=== PATIENT | female | born 1960 | race Caucasian/White ===

== ENCOUNTER → 2023-10-21 14:15 | Outpatient (CLI) | payer MEDICARE, OTHER, SELFPAY | PROVIDERS: Family Provider Nurse Practitioner Family; PCP Nurse Practitioner Family; Referring Provider Internal Medicine Critical Care Medicine; Visit Provider Internal Medicine Critical Care Medicine | DX: R06.09 Other forms of dyspnea (principal); Z87.891 Personal history of nicotine dependence; J98.8 Other specified respiratory disorders | CPT/HCPCS: 94060; 94726; 94729 ==

== ENCOUNTER 2024-03-02 14:15 | Outpatient (RCR) | payer MEDICARE, OTHER, SELFPAY | END 2024-03-02 16:15 | LOC: PUL 14:15 | PROVIDERS: Family Provider Nurse Practitioner Family; PCP Nurse Practitioner Family; Referring Provider Internal Medicine Critical Care Medicine; Visit Provider Internal Medicine Critical Care Medicine | DX: J44.9 Chronic obstructive pulmonary disease, unspecified (principal) | CPT/HCPCS: 94626 ==

== ENCOUNTER 2024-10-19 14:15 | Outpatient (RCR) | payer MEDICARE, OTHER, SELFPAY | END 2024-10-19 16:15 | LOC: PUL 14:15 | PROVIDERS: Family Provider Nurse Practitioner Family; PCP Nurse Practitioner Family; Referring Provider Internal Medicine Critical Care Medicine; Visit Provider Internal Medicine Critical Care Medicine | DX: J44.9 Chronic obstructive pulmonary disease, unspecified (principal) | CPT/HCPCS: 94626 ==

== ENCOUNTER → 2024-12-18 15:34 | Outpatient (CLI) | payer MEDICARE, OTHER, SELFPAY ==
--- NOTE | 2024-12-18 15:35 | DI.RAD.S_ITS ---
PROCEDURE: FL BARIUM SWALLOW INDICATIONS: GASTROESOPHAGEAL REFLUX/DYSPHAGIA COMPARISON: None. FINDINGS: Function: There is normal esophageal peristalsis. No elicited gastroesophageal reflux. There is normal transit of a calibrated barium tablet through the esophagus into the stomach. Morphology: Air-contrast images demonstrate normal mucosal morphology. Single contrast views show no esophageal strictures, extrinsic mass effects, or diverticula. Limited images of the stomach demonstrate normal appearance. IMPRESSION: Unremarkable barium swallow study. Dictated by: Yadiel Hsu M.D. on 12/18/2024 at 16:51 Approved by: Yadiel Hsu M.D. on 12/18/2024 at 16:52
== END ==
PROVIDERS: Family Provider Nurse Practitioner Family; PCP Nurse Practitioner Family; Referring Provider Internal Medicine Gastroenterology; Visit Provider Internal Medicine Gastroenterology
DX: K21.9 Gastro-esophageal reflux disease without esophagitis (principal); R13.10 Dysphagia, unspecified; J96.11 Chronic respiratory failure with hypoxia; J43.2 Centrilobular emphysema; J01.90 Acute sinusitis, unspecified; R06.89 Other abnormalities of breathing
CPT/HCPCS: 74220; 99215

== ENCOUNTER → 2025-03-14 13:53 | Outpatient (CLI) | payer MEDICARE, OTHER, SELFPAY ==
--- NOTE | 2025-03-14 13:56 | DI.RAD.S_ITS ---
PROCEDURE: XR CHEST 2V INDICATIONS: Shortness of breath TECHNIQUE: 2 views of the chest were acquired. COMPARISON: None. FINDINGS: Surgical changes and devices: None. Lungs and pleura: Lungs are clear. Left basilar atelectasis. No pleural effusions or pneumothorax. Mediastinum: Mediastinal contours are normal. Heart size is normal. Bones and chest wall: No suspicious bony abnormalities. Soft tissues appear unremarkable. IMPRESSION: No acute cardiopulmonary abnormality is seen. Dictated by: Antolin Potts M.D. on 03/14/2025 at 23:41 Approved by: Antolin Potts M.D. on 03/14/2025 at 23:42
== END ==
PROVIDERS: Family Provider Nurse Practitioner Family; PCP Physician Assistant; Referring Provider Internal Medicine Critical Care Medicine; Visit Provider Internal Medicine Critical Care Medicine
DX: J96.11 Chronic respiratory failure with hypoxia (principal); J96.12 Chronic respiratory failure with hypercapnia; J44.1 Chronic obstructive pulmonary disease with (acute) exacerbation; R06.02 Shortness of breath
CPT/HCPCS: 71046; 99215

== ENCOUNTER 2025-04-16 18:23 | Emergency (ER) | payer MEDICARE, OTHER, SELFPAY ==
[2025-04-16 18:31] VITALS: BP 138/65; PULSE 90; RESP 18; TEMP 36.1; O2SAT 95; BMI 38.2
--- NOTE | 2025-04-16 18:31 | DI.RAD.S_ITS ---
PROCEDURE: XR CHEST 1V INDICATIONS: Chest Pain TECHNIQUE: One view of the chest was acquired. COMPARISON: [facility], CR, XR CHEST 2V, 03/14/2025, 13:55. FINDINGS: Surgical changes and devices: None. Lungs and pleura: Lungs are clear. No pleural effusions or pneumothorax. Mediastinum: Mediastinal contours appear normal. Heart size is enlarged. Bones and chest wall: No suspicious bony lesions. Overlying soft tissues appear unremarkable. IMPRESSION: No acute cardiopulmonary pathology. Dictated by: Yadiel Hsu M.D. on 04/16/2025 at 18:54 Approved by: Yadiel Hsu M.D. on 04/16/2025 at 18:54
--- NOTE | 2025-04-16 18:31 | EKG_ITS ---
[address] [address] Test Date: 2025-04-16 Pat Name: Robin Tejada Department: [facility] Room: Gender: Female Hand Shaker: RICARDA : 1960 Requested By: Order Number: [id number] Reading MD: Johnathan Lay Measurements Intervals Maxwell Rate: 92 P: 66 MN: 154 QRS: 58 QRSD: 70 T: 80 QT: 374 QTc: 462 Interpretive Statements Normal sinus rhythm Low voltage QRS Nonspecific T wave abnormality Electronically Signed On 04-20-2025 0:07:46 PDT by Johnathan Lay
[2025-04-16 19:48] LABS: Add Manual Diff / Slide Review NO; Basophils Absolute Auto 0 /uL (0-100); Basophils Percent Auto 0.5 % (0-2); Eosinophils Absolute Auto 100 /uL (0-450); Eosinophils Percent Auto 1.6 % (2-4); Hematocrit 33.5 % (36-46); Hemoglobin 11.1 g/dL (12.0-16.0); Lymphocytes Absolute Auto 1300 /uL (1100-4500); Lymphocytes Percent Auto 20.8 % (25-40); Mean Corpuscular HGB Conc 33.1 % (30-36); Mean Corpuscular Hemoglobin 28.2 PG (26-34); Mean Corpuscular Volume 85.3 fL (80-100); Monocytes Absolute Auto 500 /uL (0-900); Monocytes Percent Auto 8.1 % (3-14); Neutrophils Absolute Auto 4400 /uL (1500-7000); Platelet Count 201 X10^3/uL (150-400); Red Blood Cell Count 3.93 X10^6/uL (4.0-5.2); Red Cell Distribution Width 14.3 % (11.6-14.8); White Blood Cell Count 6.3 X10^3/uL (4.5-11.0)
[2025-04-16 19:49] LABS: INR 0.9 (0.9-1.3); Prothrombin Time 10.4 SECONDS (9.4-12.5)
[2025-04-16 19:53] LABS: PTT Partial Thromboplastin Tim 30 SECONDS (25.1-36.5)
[2025-04-16 20:03] LABS: Alanine Aminotransferase 24 IU/L (<35); Albumin 3.9 g/dL (3.5-5.0); Albumin Globulin Ratio 1.3 (1.0-2.8); Alkaline Phosphatase 86 U/L (38-126); Aspartate Aminotransferase 30 IU/L (14-36); BUN Creatinine Ratio 7.2 (6-22); Bilirubin Total 0.5 mg/dL (0.2-1.3); Blood Urea Nitrogen 12 mg/dL (7-17); Calcium 8.7 mg/dL (8.4-10.2); Carbon Dioxide 33 mmol/L (22-32); Chloride 102 mmol/L (98-107); Creatine Kinase 92 U/L (30-135); Estimated Glomerular Filt Rate 34 mL/min (>60); Globulin 2.9 g/dL (1.7-4.1); Glucose 104 mg/dL (70-99); HEMOLYSIS < 15 (0-50); Lipase 46 U/L (23-300); Magnesium 1.5 mg/dL (1.6-2.3); Potassium 4.3 mmol/L (3.4-5.1); Sodium 140 mmol/L (137-145); Total Protein 6.8 g/dL (6.3-8.2)
[2025-04-16 20:14] LABS: NT-proBNP (BNP-Adult 18+) 81 pg/mL (<125); Troponin I < 0.012 ng/mL (0.01-0.034)
[2025-04-16 21:25] VITALS: BP 155/78; PULSE 83; RESP 19; O2SAT 93
== END 2025-04-16 22:48 | disposition left against medical advice (07) ==
PROVIDERS: Emergency Provider Emergency Medicine; Family Provider Nurse Practitioner Family; PCP Physician Assistant
DX: R06.02 Shortness of breath (principal); R51.9 Headache, unspecified; R07.9 Chest pain, unspecified
CPT/HCPCS: 71045; 80053; 82550; 83690; 83735; 83880; 84484; 85025; 85610; 85730; 93005; 99284

== ENCOUNTER → 2025-05-16 12:49 | Outpatient (CLI) | payer MEDICARE, OTHER, SELFPAY ==
--- NOTE | 2025-05-16 12:52 | DI.CT.S_ITS ---
PROCEDURE: CT CHEST HIGH RESOLUTION INDICATIONS: Chronic respiratory failure, eval for ILD TECHNIQUE: Noncontrast 1.0 and 5.0 mm thick contiguous axial sections from the pulmonary apex to the posterior costophrenic angles, with 7 mm thick coronal and sagittal MIP reformats. 1 mm thick dynamic expiratory images acquired through the upper, mid, and lower lungs. 1.0 mm thick axial sections acquired from the chana to the posterior costophrenic angles in the prone end-inspiration position. For radiation dose reduction, the following was used: automated exposure control, adjustment of mA and/or kV according to patient size. COMPARISON: None. FINDINGS: Image quality: Diagnostic. Lower Neck: No enlarged lymph nodes. Thyroid: No thyroid nodules which require sonographic follow up, per consensus guidelines. Axillae: No enlarged lymph nodes. Chest Wall: Unremarkable. Bones: Unremarkable. Lungs and Pleura: No pneumothorax or pleural effusions. Nodular scarring in the lung apices. Mild paraseptal emphysema. Mild smooth interstitial thickening and bronchial thickening. Pleural parenchymal bands in the lower lobes. Volume loss and bronchiectasis in the right middle lobe and lingula, mild. No peripheral reticulation or honeycombing. No air trapping. Heart: Heart size is normal. No pericardial effusion. Thoracic Vessels: The aorta and pulmonary arteries demonstrate normal size. Mediastinum and Heike: No enlarged lymph nodes. Esophagus: No wall thickening. No hiatal hernia. Upper Abdomen: Visualized upper abdomen solid organs and bowel loops appear normal. IMPRESSION: No evidence of interstitial lung disease. Mild pulmonary edema. Volume loss and bronchiectasis in the right middle lobe and lingula, suggestive of non tuberculosis mycobacterium infection. Dictated by: Zeb Marsh M.D. on 05/16/2025 at 14:33 Approved by: Zeb Marsh M.D. on 05/16/2025 at 14:44
== END ==
PROVIDERS: Family Provider Nurse Practitioner Family; PCP Physician Assistant; Referring Provider Internal Medicine Critical Care Medicine; Visit Provider Internal Medicine Critical Care Medicine
DX: J96.11 Chronic respiratory failure with hypoxia (principal); J96.12 Chronic respiratory failure with hypercapnia; J81.1 Chronic pulmonary edema; J47.9 Bronchiectasis, uncomplicated; J43.8 Other emphysema
CPT/HCPCS: 71250

== ENCOUNTER → 2025-10-29 09:41 | Outpatient (CLI) | payer MEDICARE, OTHER, SELFPAY | LOC: RESP 09:42 | PROVIDERS: Family Provider Nurse Practitioner Family; PCP Physician Assistant; Referring Provider Internal Medicine Critical Care Medicine; Visit Provider Internal Medicine Critical Care Medicine | DX: R06.02 Shortness of breath (principal); Z87.891 Personal history of nicotine dependence; J98.8 Other specified respiratory disorders; R94.2 Abnormal results of pulmonary function studies | CPT/HCPCS: 94060; 94618; 94726; 94729 ==